=== PATIENT | female | born 1980 | race Caucasian/White ===

== ENCOUNTER 2019-07-06 15:43 | Emergency (ER) | payer BC ==
[~2019-07-06] VITALS: Ht 165.1 cm; Wt 61.2 kg
--- NOTE | 2019-07-06 15:48 | NUR ---
ED Nurse Note: Pt BIBA from work c/o RUQ pain. Pt aox4, states she has gallstones and is supposed to have surgery for it on Tuesday07/10/19. Pain 9/10 per patient. Pt started feeling nauseous upon arrival, no vomiting. Pt placed on hospital gown, cont conveyor monitor, and pulse ox.
[2019-07-06 15:53] VITALS: BP 105/71
[2019-07-06] MEDS ORDERED: BUPROPION HCL75 MG PO (15:56)
--- NOTE | 2019-07-06 15:59 | NUR ---
ED Nurse Note: ERMD at bedside
[2019-07-06] MEDS ORDERED: Ketorolac 30mg Inj IV ONE (16:00)
--- NOTE | 2019-07-06 16:23 | NUR ---
ED Nurse Note: IV established on right ac, patient tolerated well. Blood collected and sent to lab with urine sample.
--- NOTE | 2019-07-06 16:35 | NUR ---
ED Nurse Note: US at bedside
[2019-07-06 16:45] LABS: BASOPHILS % (AUTO) 0.6 % (0.0-2.0); EOSINOPHILS % (AUTO) 0.5 % (0.0-3.0); HEMOGLOBIN 13.2 G/DL (12.0-16.0); LYMPHOCYTES % (AUTO) 23.6 % (20.0-45.0); MEAN CORPUSCULAR VOLUME 87 FL (80-99); MONOCYTES % (AUTO) 5.2 % (1.0-10.0); NEUTROPHILS % (AUTO) 70.1 % (45.0-75.0); PLATELET COUNT 295 K/UL (150-450); RED BLOOD COUNT 4.37 M/UL (4.20-5.40); RED CELL DISTRIBUTION WIDTH 9.6 % (11.6-14.8); WHITE BLOOD COUNT 9.7 K/UL (4.8-10.8)
[2019-07-06 16:49] LABS: APPEARANCE,URINE CLEAR; BILIRUBIN, URINE NEGATIVE (NEGATIVE); COLOR,URINE PALE YELLOW; GLUCOSE, URINE (UA) NEGATIVE (NEGATIVE); KETONES,URINE NEGATIVE (NEGATIVE); LEUKOCYTE ESTERASE ,URINE NEGATIVE (NEGATIVE); NITRITE,URINE NEGATIVE (NEGATIVE); PH,URINE 8 (4.5-8.0); PROTEIN,URINE NEGATIVE (NEGATIVE); UROBILINOGEN,URINE NORMAL MG/DL (0.0-1.0)
[2019-07-06 16:58] LABS: ANION GAP 9 mmol/L (5-15); BLOOD UREA NITROGEN 15 mg/dL (7-18); CALCIUM 8.7 MG/DL (8.5-10.1); CARBON DIOXIDE 28 MMOL/L (21-32); CHLORIDE 104 MMOL/L (98-107); POTASSIUM 3.5 MMOL/L (3.5-5.1); SODIUM 141 MMOL/L (136-145)
[2019-07-06 17:02] LABS: ALANINE AMINOTRANSFERASE 110 U/L (12-78); ALBUMIN 3.8 G/DL (3.4-5.0); ALBUMIN/GLOBULIN RATIO 1.2 (1.0-2.7); ALKALINE PHOSPHATASE 82 U/L (46-116); ASPARTATE AMINO TRANSFERASE 208 U/L (15-37); BILIRUBIN,TOTAL 0.5 MG/DL (0.2-1.0)
--- NOTE | 2019-07-06 17:16 | Diagnostic Imaging Report ---
EXAM: US Abdomen Complete CLINICAL HISTORY: ABD PAIN TECHNIQUE: Real-time ultrasound of the abdomen with image documentation. COMPARISON: No relevant prior studies available. FINDINGS: Liver: Measures up to 13.4 cm. Increased echogenicity. No mass. No intrahepatic bile duct dilation. Gallbladder: Multiple gallstones. No wall thickening or pericholecystic fluid. Common bile duct: Unremarkable as visualized. No stones. No dilation. Pancreas: Unremarkable as visualized. Kidneys: Unremarkable. No stones. No solid mass. No hydronephrosis. Spleen: Measures up to 8.5 cm. No splenomegaly. Aorta: Unremarkable. No aneurysm. Inferior vena cava: Unremarkable. IMPRESSION: 1. Multiple gallstones. No wall thickening or pericholecystic fluid. 2. Hepatic steatosis.
[2019-07-06 17:33] VITALS: BP 105/69
--- NOTE | 2019-07-06 17:50 | NUR ---
ER DISCHARGE NOTE: Patient is cleared to be discharged per ERMD, pt is aox4, on room air, with stable vital signs. pt was given dc instructions, pt was able to verbalize understanding, pt id band and iv site removed without complications. pt is able to ambulate with steady gait. pt took all belongings.
[2019-07-06 17:52] VITALS: BP 105/69
--- NOTE | 2019-07-06 18:27 | Emergency Room Report ---
History of Present Illness General Chief Complaint: Abdominal Pain Source: Patient Present Illness HPI 38 year-old female complaining of nausea and right upper abdominal pain since this afternoon. Pain was 8-9/10, now currently 6/10, sharp in quality. No aggravating or relieving factors. Patient was recently diagnosed with gallstones, has gallbladder surgery scheduled for 07/10/2019 Patient states pain started after she ate a salad and some chips. Denies fever or vomiting. Normal BM. Has Rx for Muscoda and ibuprofen at home, Rx by GI/ surgeon. Allergies: Coded Allergies: No Known Allergies (Unverified , 07/06/19) Patient History Past Medical History: other - gallstones Past Surgical History: none Social History: Denies: smoking, alcohol use, drug use Now: No Nursing Documentation-[facility] Past Medical History: No History, Except For History Of Psychiatric Problem: Yes - depression Review of Systems All Other Systems: negative except mentioned in HPI Physical Exam Vital Signs Date Time Temp Pulse Resp B/P (MAP) Pulse Ox O2 Delivery O2 Flow Rate FiO2 07/06/19 15:37 97.3 72 18 97/59 (72) 99 07/06/19 15:53 Room Air Sp02 EP Interpretation: reviewed, normal Respiratory: chest non-tender, lungs clear, normal breath sounds, speaking full sentences Cardiovascular #1: regular rate, rhythm, no edema Gastrointestinal: normal bowel sounds, soft, non-distended, no guarding, no rebound, tenderness - RUQ Neurologic: alert, oriented x3, responsive, motor strength/tone normal, sensory intact, speech normal Medical Decision Making PA Attestation This patient was seen under the direct supervision of Dr. Weinstein, who directed all aspects of care and diagnostic interpretation. Diagnostic Impression: Primary Impression: Gallstones ER Course ED course HPI: 38 year-old female complaining of nausea and right upper abdominal pain since this afternoon. Pain was 8-9/10, now currently 6/10, sharp in quality. No aggravating or relieving factors. Patient was recently diagnosed with gallstones, has gallbladder surgery scheduled for 07/10/2019 Patient states pain started after she ate a salad and some chips. Denies fever or vomiting. Normal BM. Has Rx for Muscoda and ibuprofen at home, Rx by GI/ surgeon. Ddx: cholelithiasis, cholecystitis, pancreatitis, hepatitis, gastritis, peptic ulcer disease, partial small bowel obstruction, and others. HPI & PE consistent with: cholelithiasis, elevated LFTs Orders/ Interventions: Case discussed with Dr. Weinstein, who agreed with ER course and disposition. CBC showed no evidence of systemic infection or severe anemia. CMP showed elevated LFTs, no evidence of electrolyte abnormalities, severe acidosis, alkalosis, renal failure. Lipase showed no evidence of acute pancreatitis. UA showed no evidence of acute infection. Abdomen US showed multiple gallstones, no wall thickening or peicholecystic fluid. hepatic steatosis. Patient medicated with Toradol 30mg IV and Zofran 4mg, pain improved to 2-3/10. Do not suspect acute abdomen. Abd reassessment: patient feels much improved. Abdomen soft, no guarding or rigidity. Disposition: At this time pt. is stable for d/c to home. Take RX as by GI/ surgeon. Will provide printed patient care instructions, and any necessary prescriptions. Care plan and follow up instructions have been discussed with the patient prior to discharge. Please note that this Emergency Department Report was dictated using [employer] checker technology software, occasionally this can lead to erroneous entry secondary to interpretation by the dictation equipment. Laboratory Tests Test 07/06/19 16:10 White Blood Count 9.7 K/UL (4.8-10.8) Red Blood Count 4.37 M/UL (4.20-5.40) Hemoglobin 13.2 G/DL (12.0-16.0) Hematocrit 38.0 % (37.0-47.0) Mean Corpuscular Volume 87 FL (80-99) Mean Corpuscular Hemoglobin 30.2 PG (27.0-31.0) Mean Corpuscular Hemoglobin Concent 34.8 G/DL (32.0-36.0) Red Cell Distribution Width 9.6 % (11.6-14.8) L Platelet Count 295 K/UL (150-450) Mean Platelet Volume 5.3 FL (6.5-10.1) L Neutrophils (%) (Auto) 70.1 % (45.0-75.0) Lymphocytes (%) (Auto) 23.6 % (20.0-45.0) Monocytes (%) (Auto) 5.2 % (1.0-10.0) Eosinophils (%) (Auto) 0.5 % (0.0-3.0) Basophils (%) (Auto) 0.6 % (0.0-2.0) Urine Color Pale yellow Urine Appearance Clear Urine pH 8 (4.5-8.0) Urine Specific [place] 1.010 (1.005-1.035) Urine Protein Negative (NEGATIVE) Urine Glucose (UA) Negative (NEGATIVE) Urine Ketones Negative (NEGATIVE) Urine Blood 5+ (NEGATIVE) H Urine Nitrite Negative (NEGATIVE) Urine Bilirubin Negative (NEGATIVE) Urine Urobilinogen Normal MG/DL (0.0-1.0) Urine Leukocyte Esterase Negative (NEGATIVE) Urine RBC 5-10 /HPF (0 - 2) H Urine WBC 2-4 /HPF (0 - 2) Urine Squamous Epithelial Cells Many /LPF (NONE/OCC) H Urine Bacteria Few /HPF (NONE) Sodium Level 141 MMOL/L (136-145) Potassium Level 3.5 MMOL/L (3.5-5.1) Chloride Level 104 MMOL/L (98-107) Carbon Dioxide Level 28 MMOL/L (21-32) Anion Gap 9 mmol/L (5-15) Blood Urea Nitrogen 15 mg/dL (7-18) Creatinine 1.0 MG/DL (0.55-1.30) Estimate Glomerular Filtration Rate > 60 mL/min (>60) Glucose Level 91 MG/DL (74-106) Calcium Level 8.7 MG/DL (8.5-10.1) Total Bilirubin 0.5 MG/DL (0.2-1.0) Aspartate Amino Transferase (AST) 208 U/L (15-37) H Alanine Aminotransferase (ALT) 110 U/L (12-78) H Alkaline Phosphatase 82 U/L (46-116) Total Protein 7.0 G/DL (6.4-8.2) Albumin 3.8 G/DL (3.4-5.0) Globulin 3.2 g/dL Albumin/Globulin Ratio 1.2 (1.0-2.7) Lipase 153 U/L (73-393) CT/MRI/US Diagnostic Results CT/MRI/US Diagnostic Results : Imaging Test Ordered: abd US Impression Interpreted by radiology. 1. Multiple gallstones. No wall thickening or pericholecystic fluid 2. Hepatic steatosis. Last Vital Signs Date Time Temp Pulse Resp B/P (MAP) Pulse Ox O2 Delivery O2 Flow Rate FiO2 07/06/19 17:52 97.8 72 20 105/69 100 Room Air Status: improved Disposition: HOME, SELF-CARE Condition: Improved Referrals: NON PHYSICIAN (PCP) Patient Instructions: Cholelithiasis, [id number] Additional Instructions: Advised bland diet, avoid fatty fried foods. Followup with GI/ surgeon in 2 days or return to ED if worsening symptoms, new symptoms, or sudden change in condition. Ritchie Laureano Jul 06, 2019 18:27
== END 2019-07-06 17:52 | disposition home or self-care (01) ==
LOC: EDBD 15:43 → EMR 16:02
DX: K80.80 Other cholelithiasis without obstruction (principal); F32.9 Major depressive disorder, single episode, unspecified
CPT/HCPCS: 36415; 76700; 80053; 81003; 83690; 85025; 96374; 96375; 99284; J1885; J2405